=== PATIENT | male | born 1960 | race African-American/Black ===

== ENCOUNTER → 2016-06-11 08:02 | Outpatient (CLI) | payer BC | END | disposition home or self-care (01) | LOC: D.RAD 08:02 | DX: R06.02 Shortness of breath (principal); M19.90 Unspecified osteoarthritis, unspecified site ==

== ENCOUNTER 2017-06-04 01:20 | Emergency (ER) | payer BC | END 2017-06-04 03:15 | disposition home or self-care (01) | LOC: D.ER 01:20 | DX: T78.3XXA Angioneurotic edema, initial encounter (principal); I10 Essential (primary) hypertension; E11.9 Type 2 diabetes mellitus without complications ==